=== PATIENT | male | born 1950 | race Caucasian/White ===

== ENCOUNTER 2022-06-05 06:15 | Observation (INO) ==
[~2022-06-05 06:15] MED LIST: DIAZEPAM 5 MG TABLET PO ONE; ceFAZolin 1,000 MG VIAL IRRIG ONE; diphenhydrAMINE CAP 50 MG CAPSULE PO ONE
[2022-06-05] MEDS ORDERED: diphenhydrAMINE CAP 50 MG CAPSULE ONE (07:00)
[2022-06-05] MEDS ORDERED: DIAZEPAM 5 MG TABLET ONE (07:00)
[2022-06-05 07:01] LABS: Basophils # 0.1 10*3/uL (0.0-0.2); Basophils % 1.1 % (0.0-0.8); Eosinophils # 0.3 10*3/uL (0.0-0.87); Eosinophils % 7.4 % (0.00-10.9); Hematocrit 37.3 VOL% (42.0-52.0); Hemoglobin 12.3 GM/DL (14.0-18.0); Immature Granulocytes % 0.4 %; Immature Granulocytes Absolute 0.02 #; Lymphocytes # 1.4 10*3/uL (1.4-4.0); Lymphocytes % 30.6 % (21.2-54.2); Mean Corpuscular Volume 89.2 FL (87-102); Mean Platelet Volume 11.1 FL (9.6-12.0); Monocytes # 0.3 10*3/uL (0.11-0.8); Monocytes % 7.4 % (1.7-12.7); Neutrophils % 53.1 % (38.7-73.9); Platelet Count 204 T/CUMM (130-400); Red Blood Count 4.18 MC/CUMM (3.8-5.5); Red Cell Distribution Width 13.5 % (9.3-17.3); White Blood Count 4.5 T/CUMM (4-12)
[2022-06-05] MEDS: SODIUM CHLORIDE 0.9% 1,000 ML IV SCH ×2 (07:02→17:24)
[2022-06-05] MEDS ORDERED: ceFAZolin 1,000 MG VIAL ONE (07:12)
[2022-06-05] MEDS ORDERED: HEPARIN/NACL 0.9% 2 UNITS/ML 1,000 UNIT/500 ML BAG IV ONE (07:12)
[2022-06-05 07:23] LABS: Calcium 9.3 MG/DL (8.5-10.1); Osmolality,Calculated 280.4 MOS/KG (273-304); Potassium 3.9 MMOL/L (3.5-5.1)
[2022-06-05] MEDS ORDERED: fentaNYL 100 MCG/2 ML VIAL ONE (07:29)
[2022-06-05] MEDS ORDERED: MIDAZOLAM 2 MG/2 ML VIAL ONE ×2 (07:29→07:43)
[2022-06-05] MEDS ORDERED: TISSUE ADHESIVE 1 EACH APPLICATOR TOP ONE (07:49)
[2022-06-05] MEDS: ATORVASTATIN 10 MG TABLET PO SCH (21:02)
[2022-06-05] MEDS: MAGNESIUM CHLORIDE 64 MG TABLET PO SCH (21:02)
[2022-06-05] MEDS: TAMSULOSIN 0.4 MG CAPSULE PO SCH (21:02)
[2022-06-06] MEDS: SODIUM CHLORIDE 0.9% 1,000 ML IV SCH ×3 (05:08→10:09)
[2022-06-06] MEDS ORDERED: ceFAZolin 1,000 MG VIAL IRRIG ONE (06:11)
[2022-06-06] MEDS ORDERED: diphenhydrAMINE CAP 50 MG CAPSULE PO ONE (06:30)
[2022-06-06] MEDS ORDERED: DIAZEPAM 5 MG TABLET PO ONE (06:30)
[2022-06-06 07:22] LABS: Calcium 9.1 MG/DL (8.5-10.1); Osmolality,Calculated 279.4 MOS/KG (273-304)
[2022-06-06] MEDS: TAMSULOSIN 0.4 MG CAPSULE PO SCH ×2 (09:59→20:46)
[2022-06-06] MEDS: MAGNESIUM CHLORIDE 64 MG TABLET PO SCH ×2 (09:59→20:45)
[2022-06-06] MEDS: MULTIVITAMIN (CENTRUM) TABLET PO SCH (09:59)
[2022-06-06] MEDS: CHOLECALCIFEROL 1,000 UNIT TABLET PO SCH (10:00)
[2022-06-06] MEDS: METOPROLOL SUCCINATE XL 25 MG TABLET PO SCH (10:00)
[2022-06-06] MEDS: ZINC GLUCONATE 50 MG TABLET PO SCH (10:00)
[2022-06-06] MEDS: ASPIRIN EC 81 MG TABLET PO SCH (10:01)
[2022-06-06] MEDS ORDERED: HEPARIN/NACL 0.9% 2 UNITS/ML 1,000 UNIT/500 ML BAG IV ONE (12:04)
[2022-06-06] MEDS ORDERED: ceFAZolin 1,000 MG VIAL ONE ×2 (12:04)
[2022-06-06] MEDS ORDERED: MIDAZOLAM 2 MG/2 ML VIAL ONE ×2 (12:05→12:27)
[2022-06-06] MEDS ORDERED: fentaNYL 100 MCG/2 ML VIAL ONE (12:05)
[2022-06-06] MEDS ORDERED: TISSUE ADHESIVE 1 EACH APPLICATOR TOP ONE (12:43)
[2022-06-06] MEDS ORDERED: ACETAMINOPHEN 325 MG TABLET PO PRN (13:09)
[2022-06-06] MEDS: cephALEXin 500 MG CAPSULE PO SCH ×2 (17:23→23:01)
[2022-06-06] MEDS: FINASTERIDE 5 MG TABLET PO SCH (17:23)
[2022-06-06] MEDS: ATORVASTATIN 10 MG TABLET PO SCH (20:46)
[2022-06-07] MEDS: cephALEXin 500 MG CAPSULE PO SCH ×2 (05:27→11:03)
[2022-06-07 05:36] LABS: Basophils # 0.1 10*3/uL (0.0-0.2); Eosinophils # 0.3 10*3/uL (0.0-0.87); Eosinophils % 6.4 % (0.00-10.9); Hematocrit 37.8 VOL% (42.0-52.0); Hemoglobin 12.7 GM/DL (14.0-18.0); Immature Granulocytes % 0.4 %; Immature Granulocytes Absolute 0.02 #; Lymphocytes # 1.5 10*3/uL (1.4-4.0); Lymphocytes % 28.8 % (21.2-54.2); Mean Corpuscular HGB Conc 33.6 GM/DL (32-36); Mean Corpuscular Volume 88.7 FL (87-102); Mean Platelet Volume 11.2 FL (9.6-12.0); Monocytes # 0.4 10*3/uL (0.11-0.8); Monocytes % 8.1 % (1.7-12.7); Neutrophils % 55.3 % (38.7-73.9); Platelet Count 190 T/CUMM (130-400); Red Blood Count 4.26 MC/CUMM (3.8-5.5); Red Cell Distribution Width 13.3 % (9.3-17.3); White Blood Count 5.2 T/CUMM (4-12)
[2022-06-07] MEDS: SODIUM CHLORIDE 0.9% 1,000 ML IV SCH ×2 (07:20→07:21)
[2022-06-07 08:34] VITALS: BP 121/77
[2022-06-07] MEDS: FINASTERIDE 5 MG TABLET PO SCH (08:34)
[2022-06-07] MEDS: ASPIRIN EC 81 MG TABLET PO SCH (08:34)
[2022-06-07] MEDS: METOPROLOL SUCCINATE XL 25 MG TABLET PO SCH (08:34)
[2022-06-07] MEDS: CHOLECALCIFEROL 1,000 UNIT TABLET PO SCH (08:34)
[2022-06-07] MEDS: MULTIVITAMIN (CENTRUM) TABLET PO SCH (08:34)
[2022-06-07] MEDS: MAGNESIUM CHLORIDE 64 MG TABLET PO SCH (08:34)
[2022-06-07] MEDS: ZINC GLUCONATE 50 MG TABLET PO SCH (08:35)
[2022-06-07] MEDS: TAMSULOSIN 0.4 MG CAPSULE PO SCH (08:35)
== END 2022-06-07 12:05 | disposition home or self-care (01) ==
LOC: N.2W 06:15 → N.CL 06:15 → N.2W 09:25 → EDSDCBED 09:25 → N.CL 06-07 12:05 → UNDODEPSDC 06-09 06:29
PROVIDERS: ADMIT Internal Medicine Cardiovascular Disease; ATTEND Internal Medicine Cardiovascular Disease

== ENCOUNTER 2022-07-23 01:15 | Inpatient (IN) ==
[2022-07-23 02:08] LABS: Basophils % 0.4 % (0.0-0.8); Eosinophils % 0.1 % (0.00-10.9); Hematocrit 40.6 VOL% (42.0-52.0); Hemoglobin 13.7 GM/DL (14.0-18.0); Immature Granulocytes % 0.9 %; Immature Granulocytes Absolute 0.08 #; Lymphocytes # 0.3 10*3/uL (1.4-4.0); Lymphocytes % 3.2 % (21.2-54.2); Mean Corpuscular HGB Conc 33.7 GM/DL (32-36); Mean Corpuscular Volume 87.7 FL (87-102); Mean Platelet Volume 12.2 FL (9.6-12.0); Monocytes # 0.2 10*3/uL (0.11-0.8); Monocytes % 1.9 % (1.7-12.7); Neutrophils % 93.5 % (38.7-73.9); Platelet Count 138 T/CUMM (130-400); Red Blood Count 4.63 MC/CUMM (3.8-5.5); Red Cell Distribution Width 13.1 % (9.3-17.3); White Blood Count 9.1 T/CUMM (4-12)
[2022-07-23 02:17] LABS: INR 1.1; PT Patient Result 12.5 SECS (10.1-12.1); Partial Thromboplastin Time 36.3 SECS (23.7-32.9)
[2022-07-23 02:37] LABS: Band Neutrophils 8 % (0-10); Lymphocytes 2 % (20-55); Total Cells Counted 100
[2022-07-23 02:38] LABS: Platelet Estimate Decreased
[2022-07-23 02:47] LABS: Albumin 3.2 G/DL (3.4-5.0); Bilirubin,Total 1.4 MG/DL (0.20-1.00); Calcium 9.2 MG/DL (8.5-10.1); Total Protein 6.9 G/DL (6.4-8.2)
[2022-07-23] MEDS ORDERED: NITROGLYCERIN SL 0.4 MG TABLET SL STA (03:17)
[2022-07-23] MEDS ORDERED: SODIUM CHLORIDE 0.9% 1,000 ML IV STA (03:17)
[2022-07-23] MEDS ORDERED: CLOPIDOGREL 75 MG TABLET PO STA (04:46)
[2022-07-23] MEDS ORDERED: ASPIRIN CHEW 81 MG TABLET PO STA (04:47)
[2022-07-23] MEDS: SODIUM CHLORIDE 0.9% 1,000 ML IV SCH ×2 (05:34→23:46)
[2022-07-23] MEDS: MAGNESIUM CHLORIDE 64 MG TABLET PO SCH ×2 (09:09→20:37)
[2022-07-23] MEDS: CHOLECALCIFEROL 1,000 UNIT TABLET PO SCH (09:09)
[2022-07-23] MEDS: ATORVASTATIN 10 MG TABLET PO SCH (09:09)
[2022-07-23] MEDS: PANTOPRAZOLE 40 MG TABLET PO SCH (09:10)
[2022-07-23] MEDS: METOPROLOL SUCCINATE XL 25 MG TABLET PO SCH (09:10)
[2022-07-23] MEDS: TAMSULOSIN 0.4 MG CAPSULE PO SCH ×2 (09:10→20:37)
[2022-07-23] MEDS ORDERED: PNEUMOCOCCAL VACCINE (13 VALENT) 0.5 ML SYRINGE IM ONE (11:40)
[2022-07-23] MEDS ORDERED: VANCOMYCIN INJ 1,500 MG in SODIUM CHLORIDE 0.9% 500 ML IV PRN (14:11)
[2022-07-23] MEDS ORDERED: VANCOMYCIN INJ 1,500 MG in SODIUM CHLORIDE 0.9% 500 ML IV ONE (15:00)
[2022-07-23] MEDS: ENOXAPARIN 40 MG/0.4 ML SYRINGE SUBCUT SCH (20:37)
[2022-07-23] MEDS: ACETAMINOPHEN 325 MG TABLET PO PRN (23:44)
[2022-07-24 02:15] LABS: Basophils % 0.3 % (0.0-0.8); Hematocrit 37.8 VOL% (42.0-52.0); Hemoglobin 12.5 GM/DL (14.0-18.0); Immature Granulocytes % 0.3 %; Immature Granulocytes Absolute 0.02 #; Lymphocytes # 0.4 10*3/uL (1.4-4.0); Lymphocytes % 5.7 % (21.2-54.2); Mean Corpuscular HGB Conc 33.1 GM/DL (32-36); Mean Corpuscular Volume 88.1 FL (87-102); Mean Platelet Volume 12.1 FL (9.6-12.0); Monocytes # 0.2 10*3/uL (0.11-0.8); Monocytes % 2.1 % (1.7-12.7); Neutrophils % 91.6 % (38.7-73.9); Platelet Count 102 T/CUMM (130-400); Red Blood Count 4.29 MC/CUMM (3.8-5.5); Red Cell Distribution Width 13.5 % (9.3-17.3); White Blood Count 7.5 T/CUMM (4-12)
[2022-07-24 02:39] LABS: Albumin 2.7 G/DL (3.4-5.0); Bilirubin,Total 1.2 MG/DL (0.20-1.00); Calcium 8.9 MG/DL (8.5-10.1); Osmolality,Calculated 282.8 MOS/KG (273-304); Potassium 4.8 MMOL/L (3.5-5.1); Total Protein 6.3 G/DL (6.4-8.2)
[2022-07-24 02:48] LABS: Band Neutrophils 4 % (0-10); Lymphocytes 4 % (20-55); Platelet Estimate Decreased; Total Cells Counted 100
[2022-07-24] MEDS ORDERED: SODIUM CHLORIDE 0.9% 1,000 ML IV ONE (08:06)
[2022-07-24 08:56] VITALS: BP 127/60
[2022-07-24] MEDS ORDERED: diphenhydrAMINE CAP 25 MG CAPSULE PO ONE (08:57)
[2022-07-24] MEDS ORDERED: ACETAMINOPHEN 325 MG TABLET PO ONE (08:57)
[2022-07-24] MEDS: ATORVASTATIN 10 MG TABLET PO SCH (09:42)
[2022-07-24] MEDS: TAMSULOSIN 0.4 MG CAPSULE PO SCH ×2 (09:42→20:45)
[2022-07-24] MEDS: CLOPIDOGREL 75 MG TABLET PO SCH (09:42)
[2022-07-24] MEDS: FINASTERIDE 5 MG TABLET PO SCH (09:43)
[2022-07-24] MEDS: PANTOPRAZOLE 40 MG TABLET PO SCH (09:44)
[2022-07-24] MEDS: ASPIRIN EC 81 MG TABLET PO SCH (09:44)
[2022-07-24] MEDS: MAGNESIUM CHLORIDE 64 MG TABLET PO SCH ×2 (09:44→20:45)
[2022-07-24] MEDS: METOPROLOL SUCCINATE XL 25 MG TABLET PO SCH (09:47)
[2022-07-24] MEDS: CHOLECALCIFEROL 1,000 UNIT TABLET PO SCH (10:03)
[2022-07-24] MEDS: SODIUM CHLORIDE 0.9% 1,000 ML IV SCH ×2 (10:08→12:26)
[2022-07-24] MEDS: IMMUNE GLOBULIN 10% 40 GM in PREMIX 1 EACH IV SCH (11:14)
[2022-07-24] MEDS ORDERED: FUROSEMIDE 40 MG/4 ML VIAL IV ONE (11:58)
[2022-07-24] MEDS: VANCOMYCIN INJ 1,500 MG in SODIUM CHLORIDE 0.9% 500 ML IV SCH (17:14)
[2022-07-24] MEDS: ENOXAPARIN 40 MG/0.4 ML SYRINGE SUBCUT SCH (20:46)
[2022-07-24] MEDS: ACETAMINOPHEN 325 MG TABLET PO PRN (23:34)
[2022-07-24] MEDS: guaiFENesin/DM ER 600-30 MG TABLET PO PRN (23:34)
[2022-07-24] MEDS ORDERED: ALBUTEROL/IPRATROPIUM 3 ML NEB RESP TX ONE (23:49)
[2022-07-25] MEDS: ALBUTEROL/IPRATROPIUM 3 ML NEB RESP TX SCH ×4 (00:17→18:02)
[2022-07-25 05:15] LABS: Basophils % 0.3 % (0.0-0.8); Eosinophils % 0.1 % (0.00-10.9); Hematocrit 32.6 VOL% (42.0-52.0); Immature Granulocytes % 7.9 %; Immature Granulocytes Absolute 0.73 #; Lymphocytes # 0.5 10*3/uL (1.4-4.0); Lymphocytes % 5.6 % (21.2-54.2); Mean Corpuscular HGB Conc 33.7 GM/DL (32-36); Mean Corpuscular Volume 87.2 FL (87-102); Mean Platelet Volume 12.2 FL (9.6-12.0); Monocytes # 0.7 10*3/uL (0.11-0.8); Monocytes % 7.3 % (1.7-12.7); Neutrophils % 78.8 % (38.7-73.9); Platelet Count 85 T/CUMM (130-400); Red Blood Count 3.74 MC/CUMM (3.8-5.5); Red Cell Distribution Width 13.9 % (9.3-17.3); White Blood Count 9.2 T/CUMM (4-12)
[2022-07-25 05:38] LABS: Albumin 2.1 G/DL (3.4-5.0); Bilirubin,Total 1.4 MG/DL (0.20-1.00); Calcium 8.7 MG/DL (8.5-10.1); Osmolality,Calculated 278.4 MOS/KG (273-304); Potassium 3.8 MMOL/L (3.5-5.1); Total Protein 6.4 G/DL (6.4-8.2)
[2022-07-25 06:07] LABS: Band Neutrophils 2 % (0-10); Eosinophils 1 % (0-10); Lymphocytes 6 % (20-55); Metamyelocytes 1 %; Microcytosis Slight; Total Cells Counted 100
[2022-07-25 06:08] LABS: Platelet Estimate Decreased
[2022-07-25] MEDS: CLOPIDOGREL 75 MG TABLET PO SCH (09:04)
[2022-07-25] MEDS: METOPROLOL SUCCINATE XL 25 MG TABLET PO SCH (09:04)
[2022-07-25] MEDS: TAMSULOSIN 0.4 MG CAPSULE PO SCH ×2 (09:04→20:01)
[2022-07-25] MEDS: ASPIRIN EC 81 MG TABLET PO SCH (09:04)
[2022-07-25] MEDS: ATORVASTATIN 10 MG TABLET PO SCH (09:05)
[2022-07-25] MEDS: PANTOPRAZOLE 40 MG TABLET PO SCH (09:05)
[2022-07-25] MEDS: CHOLECALCIFEROL 1,000 UNIT TABLET PO SCH (09:05)
[2022-07-25] MEDS: MAGNESIUM CHLORIDE 64 MG TABLET PO SCH ×2 (09:05→20:01)
[2022-07-25] MEDS: FINASTERIDE 5 MG TABLET PO SCH (09:06)
[2022-07-25] MEDS: IMMUNE GLOBULIN 10% 40 GM in PREMIX 1 EACH IV SCH (09:09)
[2022-07-25] MEDS ORDERED: FUROSEMIDE 40 MG/4 ML VIAL IV ONE (09:54)
[2022-07-25 10:55] LABS: Arterial Base Excess iSTAT 0 MMOL/L (-2.5-2.5); Arterial Bicarbonate iSTAT 24.4 MMOL/L (20-26); Arterial O2 Saturation iSTAT 96 % (95-100); Arterial PCO2 iSTAT 40 MM HG (35-48); Arterial PO2 iSTAT 86 MM HG (80-95); Arterial Total CO2 iSTAT 26 MMO/L (23-27); Arterial pH iSTAT 7.399 (7.35-7.45)
[2022-07-25] MEDS: RIFAMPIN INJ 600 MG in SODIUM CHLORIDE 0.9% 100 ML IV SCH (12:06)
[2022-07-25] MEDS: MORPHINE 2 MG/1 ML SYRINGE IV PRN ×2 (12:13→21:24)
[2022-07-25] MEDS: VANCOMYCIN INJ 1,500 MG in SODIUM CHLORIDE 0.9% 500 ML IV SCH (17:16)
[2022-07-25] MEDS: ENOXAPARIN 40 MG/0.4 ML SYRINGE SUBCUT SCH (20:01)
[2022-07-26] MEDS: ALBUTEROL/IPRATROPIUM 3 ML NEB RESP TX SCH ×4 (00:47→19:15)
[2022-07-26] MEDS: MORPHINE 2 MG/1 ML SYRINGE IV PRN ×5 (02:00→23:40)
[2022-07-26 04:01] LABS: Basophils % 0.3 % (0.0-0.8); Eosinophils # 0.1 10*3/uL (0.0-0.87); Eosinophils % 0.7 % (0.00-10.9); Hematocrit 32.3 VOL% (42.0-52.0); Hemoglobin 10.9 GM/DL (14.0-18.0); Immature Granulocytes % 0.8 %; Lymphocytes # 0.8 10*3/uL (1.4-4.0); Lymphocytes % 6.1 % (21.2-54.2); Mean Corpuscular HGB Conc 33.7 GM/DL (32-36); Mean Corpuscular Volume 86.4 FL (87-102); Mean Platelet Volume 12.4 FL (9.6-12.0); Monocytes # 0.8 10*3/uL (0.11-0.8); Monocytes % 6.4 % (1.7-12.7); Neutrophils % 85.7 % (38.7-73.9); Platelet Count 86 T/CUMM (130-400); Red Blood Count 3.74 MC/CUMM (3.8-5.5); Red Cell Distribution Width 14.4 % (9.3-17.3); White Blood Count 12.3 T/CUMM (4-12)
[2022-07-26 04:11] LABS: Calcium 8.8 MG/DL (8.5-10.1); Osmolality,Calculated 280.2 MOS/KG (273-304); Potassium 3.6 MMOL/L (3.5-5.1)
[2022-07-26 04:32] LABS: Lymphocytes 3 % (20-55); Platelet Estimate Decreased; Total Cells Counted 100
[2022-07-26 04:33] LABS: Hypochromia Slight; Microcytosis Slight
[2022-07-26] MEDS: guaiFENesin/DM ER 600-30 MG TABLET PO PRN ×2 (06:01→12:36)
[2022-07-26] MEDS: ATORVASTATIN 10 MG TABLET PO SCH (08:22)
[2022-07-26] MEDS: FINASTERIDE 5 MG TABLET PO SCH (08:22)
[2022-07-26] MEDS: METOPROLOL SUCCINATE XL 25 MG TABLET PO SCH (08:23)
[2022-07-26] MEDS: PANTOPRAZOLE 40 MG TABLET PO SCH (08:23)
[2022-07-26] MEDS: MAGNESIUM CHLORIDE 64 MG TABLET PO SCH ×2 (08:23→20:12)
[2022-07-26] MEDS: TAMSULOSIN 0.4 MG CAPSULE PO SCH ×2 (08:23→20:12)
[2022-07-26] MEDS: CLOPIDOGREL 75 MG TABLET PO SCH (08:24)
[2022-07-26] MEDS: ASPIRIN EC 81 MG TABLET PO SCH (08:24)
[2022-07-26] MEDS: CHOLECALCIFEROL 1,000 UNIT TABLET PO SCH (08:24)
[2022-07-26] MEDS: POLYVINYL 0.5%/POVIDONE 0.6% OPH SOLN 15 ML BOTTLE BOTH EYES PRN (08:30)
[2022-07-26] MEDS ORDERED: METOPROLOL TARTRATE 5 MG/5 ML VIAL IV ONE ×3 (08:56→10:28)
[2022-07-26] MEDS: IMMUNE GLOBULIN 10% 40 GM in PREMIX 1 EACH IV SCH (09:21)
[2022-07-26] MEDS: RIFAMPIN INJ 600 MG in SODIUM CHLORIDE 0.9% 100 ML IV SCH (10:52)
[2022-07-26] MEDS ORDERED: LACTATED RINGERS 1,000 ML IV ONE (11:42)
[2022-07-26] MEDS: DOXYCYCLINE HYCLATE INJ 100 MG in SODIUM CHLORIDE 0.9% 100 ML IV SCH ×2 (12:02→23:40)
[2022-07-26] MEDS: ASCORBIC ACID 500 MG TABLET PO SCH ×2 (12:36→20:12)
[2022-07-26] MEDS: ONDANSETRON 4 MG/2 ML VIAL IV PRN (14:22)
[2022-07-26] MEDS: VANCOMYCIN INJ 1,500 MG in SODIUM CHLORIDE 0.9% 500 ML IV SCH (18:11)
[2022-07-26] MEDS: ENOXAPARIN 40 MG/0.4 ML SYRINGE SUBCUT SCH (20:13)
[2022-07-27] MEDS: ALBUTEROL/IPRATROPIUM 3 ML NEB RESP TX SCH ×4 (00:23→19:53)
[2022-07-27] MEDS: POLYVINYL 0.5%/POVIDONE 0.6% OPH SOLN 15 ML BOTTLE BOTH EYES PRN (01:46)
[2022-07-27] MEDS: ASCORBIC ACID 500 MG TABLET PO SCH ×2 (09:20→20:02)
[2022-07-27] MEDS: MAGNESIUM CHLORIDE 64 MG TABLET PO SCH ×2 (09:20→20:02)
[2022-07-27] MEDS: METOPROLOL SUCCINATE XL 25 MG TABLET PO SCH (09:21)
[2022-07-27] MEDS: CLOPIDOGREL 75 MG TABLET PO SCH (09:21)
[2022-07-27] MEDS: CHOLECALCIFEROL 1,000 UNIT TABLET PO SCH (09:21)
[2022-07-27] MEDS: ATORVASTATIN 10 MG TABLET PO SCH (09:21)
[2022-07-27] MEDS: FINASTERIDE 5 MG TABLET PO SCH (09:21)
[2022-07-27] MEDS: PANTOPRAZOLE 40 MG TABLET PO SCH (09:21)
[2022-07-27] MEDS: TAMSULOSIN 0.4 MG CAPSULE PO SCH ×2 (09:22→20:02)
[2022-07-27] MEDS: ASPIRIN EC 81 MG TABLET PO SCH (09:22)
[2022-07-27] MEDS: IMMUNE GLOBULIN 10% 40 GM in PREMIX 1 EACH IV SCH (09:23)
[2022-07-27 10:12] LABS: Basophils % 0.3 % (0.0-0.8); Eosinophils # 0.2 10*3/uL (0.0-0.87); Eosinophils % 1.1 % (0.00-10.9); Hematocrit 31.6 VOL% (42.0-52.0); Hemoglobin 10.7 GM/DL (14.0-18.0); Immature Granulocytes % 1.4 %; Immature Granulocytes Absolute 0.21 #; Lymphocytes # 0.8 10*3/uL (1.4-4.0); Lymphocytes % 5.6 % (21.2-54.2); Mean Corpuscular HGB Conc 33.9 GM/DL (32-36); Mean Corpuscular Volume 86.1 FL (87-102); Mean Platelet Volume 11.9 FL (9.6-12.0); Monocytes % 6.6 % (1.7-12.7); Red Blood Count 3.67 MC/CUMM (3.8-5.5); Red Cell Distribution Width 14.8 % (9.3-17.3); White Blood Count 14.9 T/CUMM (4-12)
[2022-07-27 10:15] LABS: Platelet Count 108 T/CUMM (130-400)
[2022-07-27 10:36] LABS: Albumin 1.6 G/DL (3.4-5.0); Bilirubin,Total 4.1 MG/DL (0.20-1.00); Calcium 8.9 MG/DL (8.5-10.1); Osmolality,Calculated 276.5 MOS/KG (273-304); Potassium 3.8 MMOL/L (3.5-5.1); Total Protein 6.8 G/DL (6.4-8.2)
[2022-07-27] MEDS: DOXYCYCLINE HYCLATE INJ 100 MG in SODIUM CHLORIDE 0.9% 100 ML IV SCH (11:42)
[2022-07-27] MEDS: RIFAMPIN INJ 600 MG in SODIUM CHLORIDE 0.9% 100 ML IV SCH (12:57)
[2022-07-27] MEDS: POTASSIUM CHLORIDE 10 MEQ TABLET PO SCH (12:59)
[2022-07-27] MEDS: VANCOMYCIN INJ 1,500 MG in SODIUM CHLORIDE 0.9% 500 ML IV SCH (14:05)
[2022-07-27] MEDS: MORPHINE 2 MG/1 ML SYRINGE IV PRN ×3 (15:18→22:04)
[2022-07-27] MEDS: guaiFENesin/DM ER 600-30 MG TABLET PO PRN (20:01)
[2022-07-27] MEDS: ENOXAPARIN 40 MG/0.4 ML SYRINGE SUBCUT SCH (20:02)
[2022-07-27 21:59] LABS: Amorphous Crystals,Urine Occasional /HPF (Few); Bilirubin,Urine Negative (Negative); Blood, Urine Negative (Negative); Glucose,Urine (UA) Negative (Negative); Ketones,Urine 5 mg/dL (Negative); Mucus,Urine Occasional /LPF (Occasional); Nitrite,Urine Negative (Negative); Protein,Urine 30 mg/dL (Negative); RBC,Urine 18 /HPF (0-4); Squamous Epithelial Cell,Urine Occasional /HPF (0-10); Urine Appearance CLEAR (Clear); Urine Color Amber (Yellow); Urine Specific Gravity 1.017 (1.001-1.035); Urine Urobilinogen < 2.0 eU/dL (<2.0)
[2022-07-28] MEDS: MORPHINE 2 MG/1 ML SYRINGE IV PRN ×10 (00:20→22:58)
[2022-07-28] MEDS: DOXYCYCLINE HYCLATE INJ 100 MG in SODIUM CHLORIDE 0.9% 100 ML IV SCH ×3 (00:23→22:58)
[2022-07-28] MEDS: ALBUTEROL/IPRATROPIUM 3 ML NEB RESP TX SCH ×4 (00:55→19:22)
[2022-07-28 03:41] LABS: Basophils % 0.3 % (0.0-0.8); Eosinophils # 0.2 10*3/uL (0.0-0.87); Eosinophils % 1.3 % (0.00-10.9); Hematocrit 31.1 VOL% (42.0-52.0); Hemoglobin 10.7 GM/DL (14.0-18.0); Immature Granulocytes % 1.5 %; Immature Granulocytes Absolute 0.21 #; Lymphocytes # 0.9 10*3/uL (1.4-4.0); Lymphocytes % 6.1 % (21.2-54.2); Mean Corpuscular HGB Conc 34.4 GM/DL (32-36); Mean Corpuscular Volume 86.1 FL (87-102); Mean Platelet Volume 11.6 FL (9.6-12.0); Monocytes % 6.9 % (1.7-12.7); Neutrophils % 83.9 % (38.7-73.9); Platelet Count 122 T/CUMM (130-400); Red Blood Count 3.61 MC/CUMM (3.8-5.5); Red Cell Distribution Width 14.8 % (9.3-17.3); White Blood Count 14.3 T/CUMM (4-12)
[2022-07-28 04:11] LABS: Albumin 1.4 G/DL (3.4-5.0); Bilirubin,Total 3.6 MG/DL (0.20-1.00); Calcium 8.8 MG/DL (8.5-10.1); Osmolality,Calculated 281.1 MOS/KG (273-304)
[2022-07-28] MEDS: VANCOMYCIN INJ 1,500 MG in SODIUM CHLORIDE 0.9% 500 ML IV SCH (08:21)
[2022-07-28] MEDS: ATORVASTATIN 10 MG TABLET PO SCH (08:21)
[2022-07-28] MEDS: POTASSIUM CHLORIDE 10 MEQ TABLET PO SCH (08:21)
[2022-07-28] MEDS: ASPIRIN EC 81 MG TABLET PO SCH (08:21)
[2022-07-28] MEDS: PANTOPRAZOLE 40 MG TABLET PO SCH (08:21)
[2022-07-28] MEDS: MAGNESIUM CHLORIDE 64 MG TABLET PO SCH ×2 (08:21→21:50)
[2022-07-28] MEDS: FINASTERIDE 5 MG TABLET PO SCH (08:21)
[2022-07-28] MEDS: TAMSULOSIN 0.4 MG CAPSULE PO SCH ×2 (08:21→21:50)
[2022-07-28] MEDS: CLOPIDOGREL 75 MG TABLET PO SCH (08:21)
[2022-07-28] MEDS: ASCORBIC ACID 500 MG TABLET PO SCH ×2 (08:21→21:51)
[2022-07-28] MEDS: CHOLECALCIFEROL 1,000 UNIT TABLET PO SCH (08:21)
[2022-07-28] MEDS: METOPROLOL SUCCINATE XL 25 MG TABLET PO SCH (08:21)
[2022-07-28] MEDS: IMMUNE GLOBULIN 10% 40 GM in PREMIX 1 EACH IV SCH (10:35)
[2022-07-28] MEDS: RIFAMPIN INJ 600 MG in SODIUM CHLORIDE 0.9% 100 ML IV SCH (16:54)
[2022-07-28] MEDS ORDERED: PHENAZOPYRIDINE 95 MG TABLET PO PRN (17:35)
[2022-07-28] MEDS ORDERED: HYDROmorphone 1 MG/1 ML SYRINGE IV ONE (20:26)
[2022-07-28] MEDS: ONDANSETRON 4 MG/2 ML VIAL IV PRN (21:50)
[2022-07-28] MEDS: ENOXAPARIN 40 MG/0.4 ML SYRINGE SUBCUT SCH (21:50)
[2022-07-28] MEDS: POLYVINYL 0.5%/POVIDONE 0.6% OPH SOLN 15 ML BOTTLE BOTH EYES PRN (23:24)
[2022-07-29] MEDS: ALBUTEROL/IPRATROPIUM 3 ML NEB RESP TX SCH ×4 (00:21→19:29)
[2022-07-29] MEDS ORDERED: HYDROmorphone 1 MG/1 ML SYRINGE IV ONE (00:50)
[2022-07-29 04:09] LABS: Basophils % 0.3 % (0.0-0.8); Eosinophils # 0.2 10*3/uL (0.0-0.87); Eosinophils % 1.2 % (0.00-10.9); Hematocrit 33.4 VOL% (42.0-52.0); Hemoglobin 11.2 GM/DL (14.0-18.0); Immature Granulocytes % 1.5 %; Immature Granulocytes Absolute 0.19 #; Lymphocytes # 1.2 10*3/uL (1.4-4.0); Mean Corpuscular HGB Conc 33.5 GM/DL (32-36); Mean Corpuscular Volume 86.8 FL (87-102); Mean Platelet Volume 11.4 FL (9.6-12.0); Monocytes # 1.1 10*3/uL (0.11-0.8); Monocytes % 8.6 % (1.7-12.7); Neutrophils % 79.4 % (38.7-73.9); Platelet Count 183 T/CUMM (130-400); Red Blood Count 3.85 MC/CUMM (3.8-5.5)
[2022-07-29] MEDS: HYDROmorphone 1 MG/1 ML SYRINGE IV PRN ×5 (04:13→19:28)
[2022-07-29 04:34] LABS: Albumin 1.4 G/DL (3.4-5.0); Bilirubin,Total 2.8 MG/DL (0.20-1.00); Calcium 8.7 MG/DL (8.5-10.1); Osmolality,Calculated 286.8 MOS/KG (273-304); Potassium 4.4 MMOL/L (3.5-5.1); Total Protein 7.7 G/DL (6.4-8.2)
[2022-07-29] MEDS: hydrALAZINE 20 MG/1 ML VIAL IV PRN ×2 (05:19→13:31)
[2022-07-29] MEDS: TAMSULOSIN 0.4 MG CAPSULE PO SCH ×2 (08:49→20:42)
[2022-07-29] MEDS: CHOLECALCIFEROL 1,000 UNIT TABLET PO SCH (08:49)
[2022-07-29] MEDS: PANTOPRAZOLE 40 MG TABLET PO SCH (08:49)
[2022-07-29] MEDS: ASPIRIN EC 81 MG TABLET PO SCH (08:49)
[2022-07-29] MEDS: FINASTERIDE 5 MG TABLET PO SCH (08:49)
[2022-07-29] MEDS: MAGNESIUM CHLORIDE 64 MG TABLET PO SCH ×2 (08:49→20:42)
[2022-07-29] MEDS: CLOPIDOGREL 75 MG TABLET PO SCH (08:49)
[2022-07-29] MEDS: POTASSIUM CHLORIDE 10 MEQ TABLET PO SCH (08:49)
[2022-07-29] MEDS: METOPROLOL SUCCINATE XL 25 MG TABLET PO SCH (08:49)
[2022-07-29] MEDS: ASCORBIC ACID 500 MG TABLET PO SCH ×2 (08:49→20:42)
[2022-07-29] MEDS: DOXYCYCLINE HYCLATE INJ 100 MG in SODIUM CHLORIDE 0.9% 100 ML IV SCH (13:14)
[2022-07-29] MEDS: RIFAMPIN INJ 600 MG in SODIUM CHLORIDE 0.9% 100 ML IV SCH (17:58)
[2022-07-29] MEDS: ENOXAPARIN 40 MG/0.4 ML SYRINGE SUBCUT SCH (20:42)
[2022-07-29] MEDS ORDERED: METOPROLOL SUCCINATE XL 25 MG TABLET PO SCH (21:00)
[2022-07-29 21:09] LABS: Bilirubin,Urine Negative (Negative); Blood, Urine Negative (Negative); Glucose,Urine (UA) Negative (Negative); Ketones,Urine Negative (Negative); Mucus,Urine Occasional /LPF (Occasional); Nitrite,Urine Positive (Negative); Protein,Urine Negative (Negative); Squamous Epithelial Cell,Urine Occasional /HPF (0-10); Urine Appearance CLEAR (Clear); Urine Color Amber (Yellow); Urine Specific Gravity 1.017 (1.001-1.035)
== END 2022-07-29 22:30 | disposition hospice, home (50) | DRG 314 ==
LOC: N.EDINP 01:15 → N.ED 01:15 → N.2W 17:54 → SUATTDRO 07-24 08:34 → N.CC 07-24 10:22
PROVIDERS: ADMIT Internal Medicine; ATTEND Family Medicine